=== PATIENT | female | born 1990 | race Caucasian/White ===

== ENCOUNTER → 2017-08-12 | Outpatient (CLI) | payer OTHER | END | disposition home or self-care (01) | LOC: RAD 14:00 | DX: M54.42 Lumbago with sciatica, left side (principal) ==

== ENCOUNTER 2017-08-21 00:52 | Emergency (ER) | payer OTHER ==
[~2017-08-21] VITALS: Ht 157.4 cm; Wt 138.3 kg
[2017-08-21] MEDS ORDERED: CYCLOBENZAPRINE5 M3 PO (01:29)
== END 2017-08-21 02:23 | disposition home or self-care (01) ==
LOC: ED 00:52
DX: M54.16 Radiculopathy, lumbar region (principal); M79.605 Pain in left leg; F17.200 Nicotine dependence, unspecified, uncomplicated

== ENCOUNTER 2017-09-01 14:39 | Emergency (ER) | payer OTHER ==
[~2017-09-01 14:39] MED LIST: CYCLOBENZAPRINE5 M3 PO
[2017-09-01] MEDS ORDERED: DELTASONE20 M1 PO (17:21)
[2017-09-01] MEDS ORDERED: ROBAXIN-750750 MG PO (17:21)
[2017-09-01] MEDS ORDERED: ULTRAM50 MG PO (17:21)
== END 2017-09-01 16:13 | disposition home or self-care (01) ==
LOC: ED 14:39
DX: M54.16 Radiculopathy, lumbar region (principal); M79.604 Pain in right leg

== ENCOUNTER 2017-12-30 10:04 | Emergency (ER) | payer OTHER ==
[~2017-12-30] VITALS: Ht 157.4 cm; Wt 136.1 kg
[~2017-12-30 10:04] MED LIST changes: +DELTASONE20 M1 PO; +ROBAXIN-750750 MG PO; +ULTRAM50 MG PO
[2017-12-30 10:38] LABS: BASO % 0.7 % (0.0-1.0); EOS # 0.1 10*3/uL (0.0-0.4); EOS % 1.9 % (1.0-4.0); HEMATOCRIT 41.9 % (37.0-47.0); LYMPH # 2.1 10*3/uL (1.3-4.4); LYMPH % 36.5 % (27.0-41.0); MEAN CELL VOLUME 87.1 fl (81.0-99.0); MEAN CORPUSCULAR HGB 29.1 pg (27.0-31.0); MEAN CORPUSCULAR HGB CONC 33.4 g/dl (33.0-37.0); MEAN PLATELET VOLUME 11.1 fl (9.6-12.3); MONO # 0.4 10*3/uL (0.1-1.0); MONO % 6.5 % (3.0-9.0); NEUT # 3.1 10*3/uL (2.3-7.9); NEUT % 53.9 % (47.0-73.0); PLATELET COUNT AUTOMATED 162 10*3/uL (130-400); RED BLOOD COUNT 4.81 10*6/uL (4.10-5.10); RED CELL DISTRI WIDTH 12.7 % (0-14.5); WHITE BLOOD COUNT 5.7 10*3/uL (4.8-10.8)
[2017-12-30 10:57] LABS: ALBUMIN 3.7 gm/dl (3.1-4.5); ALKALINE PHOSPHATASE 63 U/L (45-117); BUN 21 mg/dl (7-24); CHLORIDE 107 mmol/L (98-107); CREATININE 0.88 mg/dL (0.55-1.02); POTASSIUM 4.1 mmol/L (3.5-5.1); SGOT/AST 20 IU/L (3-35); SGPT/ALT 28 U/L (12-78); SODIUM 138 mmol/L (136-145); TOTAL PROTEIN 7.6 gm/dL (6.4-8.2)
[2017-12-30 10:59] LABS: TROPONIN I < 0.015 ng/ml (<0.045)
[2017-12-30 11:27] LABS: BILIRUBIN 1+ (NEGATIVE); BLOOD 3+ (NEGATIVE); CLARITY TURBID (CLEAR); COLOR RED (YELLOW); GLUCOSE NEGATIVE (NEGATIVE); KETONE 1+ (NEGATIVE); LEUKO ESTERASE TRACE (NEGATIVE); NITRITE POSITIVE (NEGATIVE); SPECIFIC GRAVITY >= 1.030 (1.005-1.030)
[2017-12-30 11:39] LABS: BACTERIA 4+; RBC TNTC rbc/hpf (0-2)
== END 2017-12-30 11:59 | disposition home or self-care (01) ==
LOC: ED 10:04
PROVIDERS: Nurse Practitioner
DX: F41.9 Anxiety disorder, unspecified (principal); Z79.899 Other long term (current) drug therapy

== ENCOUNTER 2018-11-21 09:47 | Emergency (ER) | payer OTHER ==
[2018-11-21] MEDS ORDERED: BENADRYL ALLERG25 M5 PO (10:08)
[2018-11-21] MEDS ORDERED: PREDNISONE50 MG PO (10:08)
[2018-11-21] MEDS ORDERED: ELIMITE 5%60 GM T (10:08)
== END 2018-11-21 10:26 | disposition home or self-care (01) ==
LOC: ED 09:47
DX: L25.9 Unspecified contact dermatitis, unspecified cause (principal); B86 Scabies; F17.200 Nicotine dependence, unspecified, uncomplicated

== ENCOUNTER 2019-12-26 10:14 | Inpatient (IN) | payer OTHER ==
[~2019-12-26] VITALS: Ht 157.5 cm; Wt 138.5 kg
[~2019-12-26 10:14] MED LIST changes: +BENADRYL ALLERG25 M5 PO; +ELIMITE 5%60 GM T; +PREDNISONE50 MG PO
[2019-12-26 10:41] VITALS: BP 138/66
[2019-12-26 11:23] LABS: BASO % 0.3 % (0.0-1.0); EOS # 0.1 10*3/uL (0.0-0.4); HEMOGLOBIN 13.1 g/dl (12.0-16.0); LYMPH % 32.3 % (27.0-41.0); MEAN CELL VOLUME 85.8 fl (81.0-99.0); MEAN CORPUSCULAR HGB 27.4 pg (27.0-31.0); MEAN PLATELET VOLUME 11.4 fl (9.6-12.3); MONO # 0.4 10*3/uL (0.1-1.0); MONO % 6.2 % (3.0-9.0); NEUT # 3.6 10*3/uL (2.3-7.9); NEUT % 59.7 % (47.0-73.0); PLATELET COUNT AUTOMATED 155 10*3/uL (130-400); RED BLOOD COUNT 4.78 10*6/uL (4.10-5.10); RED CELL DISTRI WIDTH 12.6 % (0-14.5); WHITE BLOOD COUNT 6.1 10*3/uL (4.8-10.8)
[2019-12-26 11:26] LABS: BILIRUBIN NEGATIVE (NEGATIVE); BLOOD 1+ (NEGATIVE); CLARITY CLEAR (CLEAR); COLOR YELLOW (YELLOW); GLUCOSE NEGATIVE (NEGATIVE); KETONE NEGATIVE (NEGATIVE); PH 6.5 (5.0-9.0)
[2019-12-26 11:27] LABS: LEUKO ESTERASE 3+ (NEGATIVE); NITRITE NEGATIVE (NEGATIVE); UROBILINOGEN 0.2 E.U./dl (0.2-1.0)
[2019-12-26 11:44] LABS: BACTERIA 1+; EPITHELIAL CELLS TNTC; MUCOUS TRACE; WBC 16-20 wbc/hpf (0-5)
[2019-12-26 11:48] LABS: ALBUMIN 3.2 gm/dl (3.1-4.5); ALKALINE PHOSPHATASE 46 U/L (45-117); BUN 15 mg/dl (7-24); CHLORIDE 110 mmol/L (98-107); CREATININE 0.74 mg/dL (0.55-1.02); LIPASE 85 U/L (73-393); POTASSIUM 3.7 mmol/L (3.5-5.1); SGOT/AST 15 IU/L (3-35); SGPT/ALT 21 U/L (12-78); SODIUM 140 mmol/L (136-145); TOTAL PROTEIN 7.1 gm/dL (6.4-8.2)
--- NOTE | 2019-12-26 12:03 | NUR ---
PT IS RESTING IN BED WITHOUT ANY ACUTE DISTRESS AT THIS TIME.
[2019-12-26 12:33] VITALS: BP 132/68
[2019-12-26 12:50] VITALS: BP 127/53
[2019-12-26] MEDS ORDERED: APRI 28 DAY TA1 EACH PO (13:04)
--- NOTE | 2019-12-26 13:43 | NUR ---
Time: 1250 A 29] year old FEMALE admitted to 5E under services of DANIE FONG DO. Pt. arrived via bed from ER. Chief complaint: ABDOMINAL PAIN, BILIARY COLIC JEANNIE OROZCO
--- NOTE | 2019-12-26 14:52 | NUR ---
PT MEDICATED WITH PO NORCO PER PRN ORDER FOR C/O ABD PAIN. WILL MONITOR EFFECTIVENESS.
[2019-12-26 16:00] VITALS: BP 133/58
[2019-12-26 20:00] VITALS: BP 140/46
--- NOTE | 2019-12-26 20:00 | NUR ---
PATIENT MEDICATED WITH TYLENOL FOR COMPLAINTS OF ABDOMINAL PAIN. PATIENT ALSO REQUESTING FOR BOYFRIEND TO STAY ALL NIGHT. EXPLAINED TO HER IT WAS AGAINST OUR POLICY AND SHE WANTED TO SPEAK WITH [employer] AND SAID SHE MAY LEAVE AMA. WILL CONTINUE TO MONITOR.
--- NOTE | 2019-12-26 22:22 | NUR ---
DIRECTOR OF RETAIL ANALYTICS HAD SPOKEN WITH PATIENT AND TOLD HER BOYFRIEND COULD STAY IN THE LOBBY BUT NOT IN THE ROOM. BOYFRIEND WENT HOME AT THIS TIME. PATIENT MEDICATED WITH A ONE TIME DOSE OF TORADOL FOR STOMACH PAIN AT THIS TIME. WILL CONTINUE TO MONITOR. CALL LIGHT IN REACH.
[2019-12-27] VITALS (10 sets, daily range): BP systolic 124–159; BP diastolic 44–86
[2019-12-27 06:36] LABS: BASO % 0.7 % (0.0-1.0); EOS # 0.1 10*3/uL (0.0-0.4); EOS % 1.8 % (1.0-4.0); HEMATOCRIT 38.9 % (37.0-47.0); HEMOGLOBIN 12.4 g/dl (12.0-16.0); LYMPH # 2.4 10*3/uL (1.3-4.4); LYMPH % 42.2 % (27.0-41.0); MEAN CELL VOLUME 87.4 fl (81.0-99.0); MEAN CORPUSCULAR HGB 27.9 pg (27.0-31.0); MEAN CORPUSCULAR HGB CONC 31.9 g/dl (33.0-37.0); MONO # 0.4 10*3/uL (0.1-1.0); MONO % 7.2 % (3.0-9.0); NEUT # 2.7 10*3/uL (2.3-7.9); NEUT % 47.7 % (47.0-73.0); PLATELET COUNT AUTOMATED 133 10*3/uL (130-400); RED BLOOD COUNT 4.45 10*6/uL (4.10-5.10); RED CELL DISTRI WIDTH 12.9 % (0-14.5); WHITE BLOOD COUNT 5.6 10*3/uL (4.8-10.8)
[2019-12-27 07:05] LABS: ALBUMIN 2.9 gm/dl (3.1-4.5); ALKALINE PHOSPHATASE 44 U/L (45-117); BUN 18 mg/dl (7-24); CHLORIDE 108 mmol/L (98-107); CHOLESTEROL 149 mg/dL (<200); CREATININE 0.74 mg/dL (0.55-1.02); FREE T4 1.53 ng/dl (0.76-1.46); HDL CHOLESTEROL 48 mg/dl (40-60); POTASSIUM 4.2 mmol/L (3.5-5.1); SGOT/AST 16 IU/L (3-35); SGPT/ALT 23 U/L (12-78); SODIUM 139 mmol/L (136-145)
[2019-12-27 07:10] LABS: LDL CHOLESTEROL 71 mg/dL (9-159); PHOSPHOROUS 3.5 mg/dL (2.5-4.9); TOTAL PROTEIN 6.9 gm/dL (6.4-8.2); TRIGLYCERIDES 150 mg/dl (<150); VLDL CHOLESTEROL 30 mg/dL (6-40)
[2019-12-27 07:27] LABS: VITAMIN D, 25-HYDROXY 29.4 ng/mL (30-100)
--- NOTE | 2019-12-27 09:30 | NUR ---
Curing Oven Attendant in to talk to patient. Patient states lives at home with her boyfriend. There are basement steps in the home. Physician: no family physician [facility]acy: [facility] Home health services: none Patient's level of ADLs: INDEPENDENT Patient has working utilities: yes DME: none Follow-up physician's appointment after d/c: will be made by the hospitalist nurse director upon discharge Does patient want to access PORTAL?: no Discharge plan discussed with patient. Her aunt is at her bedside. She is sitting on the edge of her bed without distress noted. She lives at home with her boyfriend. She is independent in her ADLs and ambulation. Discussed home health care services and she denies any home needs. She states she is going for surgery on her gallbladder today and then hoping she gets to go home. When medically stable she will be discharged to home. She states her boyfriend or her aunt will provide transportation on discharge. ROBINSON GARCIA
--- NOTE | 2019-12-27 16:20 | NUR ---
PATIENT BACK FROM SURGERY.
--- NOTE | 2019-12-27 16:38 | NUR ---
MEDICATED WITH PRN NORCO PER ORDER FOR ABD PAIN RATED AT 10 OUT OF 10. PATIENT VERY UNHAPPY WANTING SOMETHING IN HER IV FOR PAIN WILL CALL DOCTOR.
--- NOTE | 2019-12-27 16:45 | NUR ---
CALLED JORDEN FOR IV PAIN MEDICATION.
--- NOTE | 2019-12-27 17:01 | NUR ---
MEDICATED WITH IV TORODOL AND IV ZOFRAN PER ORDERS. PATIENT IS MOANING AND YELLING THAT SHE SHOULD NEVER HAVE COME HERE AND THAT ALL THE DRUG ADDICTS HAVE ROUINED IT FOR OTHERS. PATIENT WANTING BEDPAN AND STATES SHE CANNOT BREATHE. ASSISTED PATIENT INTO RESTROOM. PATIENT CUSSING THE ENTIRE TIME. INSTRUCTED PATIENT TO CALL ME AT 6PM AND I WILL CALL DOCTOR OR JORDEN AGAIN FOR SOMETING ELSE FOR PAIN. POX [phone]
--- NOTE | 2019-12-27 17:39 | NUR ---
CALLED DR. HINOJOSA FOR SOMETHING ELSE FOR PAIN. PATENT MOANING. NEW ORDER RECIEVED.
--- NOTE | 2019-12-27 17:53 | NUR ---
PATIENT MEDICATED WITH PRN DILAUDID PER ORDER. UNBEARABLE ABDOMINAL PAIN. PATIENT STATES SHE CAN'T EVEN TOUCH HER BELLY.
--- NOTE | 2019-12-27 19:20 | NUR ---
REPORT RECEIVED. PT SITTING UP IN BED, BOYFRIEND AT BEDSIDE. PT STATES THAT SHE IS IN PAIN, AND IS REQUESTING PAIN MEDICATION. NO OTHER COMPLAINTS, CALL LIGHT IN REACH
--- NOTE | 2019-12-27 20:01 | NUR ---
PT MEDICATED WITH NORCO FOR ABD PAIN. SEE MAR
--- NOTE | 2019-12-27 20:53 | NUR ---
PT REQUESTED A SLEEPING PILL AND SOMETHING FOR GAS. DR. MANTILLA NOTIFIED, STATED THAT HE WOULD PUT SOMETHING IN.
--- NOTE | 2019-12-27 21:01 | NUR ---
NORCO INEFFECTIVE PER PT. MEDICATED WITH DILAUDID AT THIS TIME, SEE MAR.
--- NOTE | 2019-12-27 22:12 | NUR ---
RESTORIL GIVEN PER ORDER FOR COMPLAINTS OF INSOMNIA. SEE MAR
--- NOTE | 2019-12-27 22:35 | NUR ---
PER PT, DILAUDID EFFECTIVE FOR PAIN. PT LYING IN BED AT THIS TIME. VOICES NO OTHER COMPLAINTS. CALL LIGHT IN REACH
[2019-12-28] VITALS: BP 141/74
--- NOTE | 2019-12-28 | NUR ---
PT REFUSING TO WEAR SCD'S AT THIS TIME. EDUCATED ON IMPORTANCE OF EXERCISING LEGS. ENCOURAGED WALKING TO RELIEVE GAS PAIN WELL. PT VERBALIZED UNDERSTANDING.
--- NOTE | 2019-12-28 00:49 | NUR ---
PT MEDICATED WITH NORCO PER ORDER FOR 03/28 PAIN WILL MONITOR.
--- NOTE | 2019-12-28 02:00 | NUR ---
NORCO APPEARS EFFECTIVE, PT SLEEPING AT THIS TIME.
--- NOTE | 2019-12-28 03:00 | NUR ---
CALLED DR. MANTILLA REGARDING PT REQUEST TO TAKE OFF HEART MONITOR. STATED THAT SHE COULD HAVE IT OFF AT THIS TIME
[2019-12-28 03:33] VITALS: BP 145/67
--- NOTE | 2019-12-28 03:34 | NUR ---
DILAUDID GIVEN PER ORDER FOR PAIN, SEE MAR
--- NOTE | 2019-12-28 04:59 | NUR ---
DILAUDID APPEARS EFFECTIVE, PT SLEEPING AT THIS TIME.
--- NOTE | 2019-12-28 06:48 | NUR ---
DR. MANTILLA NOTIFIED OF PT REQUEST FOR MOTRIN. NO NEW ORDERS AT THIS TIME.
[2019-12-28 07:03] LABS: BASO % 0.2 % (0.0-1.0); HEMATOCRIT 39.9 % (37.0-47.0); HEMOGLOBIN 12.5 g/dl (12.0-16.0); LYMPH # 0.8 10*3/uL (1.3-4.4); LYMPH % 7.7 % (27.0-41.0); MEAN CELL VOLUME 87.5 fl (81.0-99.0); MEAN CORPUSCULAR HGB 27.4 pg (27.0-31.0); MEAN CORPUSCULAR HGB CONC 31.3 g/dl (33.0-37.0); MEAN PLATELET VOLUME 11.8 fl (9.6-12.3); MONO # 0.6 10*3/uL (0.1-1.0); MONO % 5.6 % (3.0-9.0); NEUT # 8.6 10*3/uL (2.3-7.9); NEUT % 85.8 % (47.0-73.0); PLATELET COUNT AUTOMATED 141 10*3/uL (130-400); RED BLOOD COUNT 4.56 10*6/uL (4.10-5.10); RED CELL DISTRI WIDTH 12.9 % (0-14.5)
[2019-12-28 07:36] LABS: ALBUMIN 3.1 gm/dl (3.1-4.5); ALKALINE PHOSPHATASE 50 U/L (45-117); BUN 12 mg/dl (7-24); CHLORIDE 107 mmol/L (98-107); CREATININE 0.85 mg/dL (0.55-1.02); POTASSIUM 4.1 mmol/L (3.5-5.1); SGOT/AST 53 IU/L (3-35); SGPT/ALT 63 U/L (12-78); SODIUM 138 mmol/L (136-145); TOTAL PROTEIN 7.1 gm/dL (6.4-8.2)
--- NOTE | 2019-12-28 07:43 | NUR ---
NEW IV STARTED IN R HAND AND MEDICATED WITH PRN DILAUDID PER ORDER AND REQUEST. ENCOURAGED PATIENT TO WALK IN AGUILAR.
[2019-12-28 08:00] VITALS: BP 126/81
--- NOTE | 2019-12-28 08:20 | NUR ---
KALYNT RESTING IN BED DILAUDID HELPED.
--- NOTE | 2019-12-28 10:54 | NUR ---
MEDICATED WITH MOTRIN 800 PER ORDER AND REQUEST.
[2019-12-28 12:00] VITALS: BP 142/61
[2019-12-28] MEDS ORDERED: COLACE100 MG PO (15:19)
[2019-12-28] MEDS ORDERED: IBU800 M1 PO (15:19)
[2019-12-28 16:00] VITALS: BP 117/67
--- NOTE | 2019-12-28 16:59 | NUR ---
PATIENT TO BE DISCHARGED TO HOME.
--- NOTE | 2019-12-28 18:40 | NUR ---
PATIENT DISCHARGED TO HOME WITH BELONGINGS.
== END 2019-12-28 18:40 | disposition home or self-care (01) | DRG 418 ==
LOC: ED 10:14 → 5E 12:23 → EDHOLD 12:23 → 5E 12:53
PROVIDERS: Emergency Medicine; Registered Nurse; Surgery; ADMIT Family Medicine
PROC: 0FT44ZZ Resection of Gallbladder, Percutaneous Endoscopic Approach (ICD-10-PCS; principal; 2019-12-27)
DX: K80.42 Calculus of bile duct with acute cholecystitis without obstruction (principal); E44.1 Mild protein-calorie malnutrition; K21.9 Gastro-esophageal reflux disease without esophagitis; Z68.43 Body mass index [BMI] 50.0-59.9, adult; E87.8 Other disorders of electrolyte and fluid balance, not elsewhere classified; F41.9 Anxiety disorder, unspecified; E66.01 Morbid (severe) obesity due to excess calories; Z87.891 Personal history of nicotine dependence